=== PATIENT | female | born 1945 | race Caucasian/White ===

== ENCOUNTER → 2017-06-06 | Outpatient (CLI) | payer OTHER ==
[~2017-06-06] MED LIST: METAXALL800 MG PO; SOMATULINE120 MG/0.5 SC; VERAPAMIL HCL120 M2 PO; XGEVA120 MG/1.7 SC
== END | disposition home or self-care (01) ==
LOC: NUC 10:44
DX: M65.812 Other synovitis and tenosynovitis, left shoulder (principal); Z96.641 Presence of right artificial hip joint; Z92.21 Personal history of antineoplastic chemotherapy
CPT/HCPCS: 78306; A9503